=== PATIENT | female | born 1950 | race Caucasian/White ===

== ENCOUNTER 2024-06-09 09:55 | Outpatient (AMB) | payer MEDICARE, SELFPAY ==
[2024-06-09 10:08] VITALS: BP 128/70; PULSE 65; O2SAT 98; BMI 27.8
--- NOTE | 2024-06-09 10:08 | MHC.OFFVIS ---
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 The patient is a 73 year woman found to have a normal pulmonary nodules and pleural-based changes. The patient states that she is healthy warm without any significant respiratory issues. She did live in a home where she was exposed to significant secondhand smoke. Otherwise she never smoked in her life. Denies any allergies. Denies any significant respiratory symptoms. She denies having shortness breath with activity. Denies any significant cough. Sometimes she finds herself taking a deep breath spontaneously. She does not use any inhalers. 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 Therefore she was referred for CT scan of the chest that was done in 03/24/2024. I did personally review the CAT scan with her. It appears that she has not nodular base changes to the pleura bilaterally. Largest 1 measuring about 6-8 mm in size. In addition to that she has pulmonary nodules that are subcentimeter in size. I do not appreciate any significant pleural thickening or pleural effusion. She denies any pleuritic discomfort. Explained to her that the PleurX changes could be due to some degree of pleural inflammatory process that she started the past. The patient also has some minimal calcifications of the coronary arteries. She was concerned about that. I did reassure her explained to her that the stable plaque. If she does develop any respiratory symptoms chest pain or dyspnea on exertion be reasonable to consider having her have a stress test. Otherwise the patient does have a dilated esophagus on the CT scan as well. Appears to be moderately dilated mid esophagus. There was also some gastric juices noted as well. On further questioning she does complains of some some dyspepsia or heartburn symptoms. We did talk about the reflux diet. Based on the dilation of the esophagus is reasonable to have her undergo a barium swallow. [facility] Medical History (Updated 06/09/24 @ 22:02 by Hany Oliver MD) Thickening of pleura GERD (gastroesophageal reflux disease) Pulmonary nodule Social History (Updated 06/09/24 @ 10:12 by DEZ Schofield) Patient Tobacco Use Status: Never used Tobacco Review of Systems Const Denies fever(s) Eyes Reports no additional complaints ENT Reports no additional complaints Card Denies chest pain Resp Denies cough, Denies pain on inspiration, Denies pain with cough and Denies wheezing GI Reports dyspepsia and Reports heartburn Musc Reports no additional complaints Skin/Breast Denies rash Neuro Reports no additional complaints Aller/Immun Denies wheezing Physical Exam Vital Signs: Last Vital Signs Pulse 65 06/09/24 10:08 BP 128/70 06/09/24 10:08 Pulse Ox 98 06/09/24 10:08 Oxygen Delivery Method Room Air 06/09/24 10:08 BMI result Body Mass Index 27.8 Const General: comfortable HEENT Head: Yes normocephalic Neck Neck: Yes supple Chest Chest palpation & inspection: normal inspection of the chest Resp Effort & Inspection: normal respiratory effort Auscultation: clear to auscultation bilaterally Cardio Heart sounds: S1 normal heart sound present and S2 normal heart sound present GI Palpation (GI): Soft to palpation Skin General skin exam: no rashes or lesions noted Extrem General: Yes no clubbing, cyanosis or edema Assessment & Plan Assessment & Plan (1) Pulmonary nodule: Code(s): R91.1 - Solitary pulmonary nodule Category: Medical (2) GERD (gastroesophageal reflux disease): Code(s): K21.9 - Gastro-esophageal reflux disease without esophagitis Category: Medical Qualifiers: Esophagitis presence: esophagitis presence not specified Qualified Code(s): K21.9 - Gastro-esophageal reflux disease without esophagitis (3) Thickening of pleura: Code(s): J92.9 - Pleural plaque without asbestos Category: Medical Plan reflux diet Barium swallow repeat CT chest 03/2025 Consider bloodwork if symptomatic Consider GI eval depending on the berium swallow F/U after CT chest Orders: Orders FL barium swallow Today K21.9 - Gastro-esophageal reflux disease without esophagitis CT chest wo IV con 03/05/25 R91.1 - Solitary pulmonary nodule Coding Level of Care Code New Pt Level 4 (31413) Diagnoses Pulmonary nodule R91.1 Gastroesophageal reflux disease, unspecified whether esophagitis present K21.9 Esophagitis presence: esophagitis presence not specified Thickening of pleura J92.9 Time Spent (min) 45
== END 2024-06-09 10:44 | disposition home or self-care (01) ==
PROVIDERS: PCP Pediatrics; Referring Provider Pediatrics; Visit Provider Hospitalist
DX: R91.1 Solitary pulmonary nodule (principal); K21.9 Gastro-esophageal reflux disease without esophagitis; J92.9 Pleural plaque without asbestos
CPT/HCPCS: 99204

== ENCOUNTER → 2024-06-09 09:55 | Outpatient (BNVA) | payer MEDICARE, SELFPAY | PROVIDERS: PCP Pediatrics; Referring Provider Pediatrics; Visit Provider Hospitalist | DX: R91.1 Solitary pulmonary nodule (principal); K21.9 Gastro-esophageal reflux disease without esophagitis; J92.9 Pleural plaque without asbestos | CPT/HCPCS: 99202 ==

== ENCOUNTER 2024-06-22 08:34 | Outpatient (REF) | payer MEDICARE, SELFPAY ==
--- NOTE | ~2024-06-22 | FL_ITS ---
EXAMINATION: XR FLUOROSCOPY UPPER GI WITH AIR CLINICAL INFORMATION: Dilated esophagus on CT. COMPARISON: None TECHNIQUE: Fluoroscopic air contrast upper GI examination was performed utilizing standard techniques with thin and thick barium and effervescent granules. Numerous spot images were obtained. FINDINGS: Lateral cine images of the oropharynx and hypopharynx demonstrate normal swallow mechanism with normal epiglottic inversion and soft palate elevation. There is trace laryngeal penetration with thick barium. No tracheal penetration, glottic or subglottic aspiration identified. No nasopharyngeal reflux present. Hypopharyngeal structures appear normal without evidence of mass or diverticulum. There is moderate cricopharyngeal achalasia present. Dual and single contrast images of the esophagus demonstrate a mildly patulous esophagus with normal contour. No evidence of stricture, mass, or ulcerations identified. Esophageal peristalsis was moderately disorganized. A small type I hiatal hernia is present. Significant gastroesophageal reflux is seen up to the thoracic inlet. Dual contrast and single contrast images of the stomach demonstrated a normal contour. There are multiple foci of contrast pooling in the body and fundus the stomach that may represent small superficial aphthous ulcers. No masses are seen. Contrast freely passed into the gastric antrum and duodenal bulb without delay. Single and air-contrast images of the duodenal bulb demonstrate no abnormality. The duodenal sweep has a normal appearance, course, and mucosal fold appearance. The imaged proximal jejunum has a normal fold pattern and caliber. Contrast is noted to opacify the right colon less than 10 minutes. FLUOROSCOPY TIME: 4 minutes 44 seconds Number of Spot Images: 12 Number of Cine: 14 DOSE AREA PRODUCT: [id number] uGy-m2 (microgray-meter squared) FL/FL barium swallow with air IMPRESSION: 1. Trace laryngeal penetration with thick barium 2. Moderate cricopharyngeal achalasia. 3. Mildly patulous esophagus with moderately disorganized peristalsis consistent with esophagitis motility. 4. Small type I hiatal hernia with severe gastroesophageal reflux. 5. Multiple foci of contrast pooling in the body and fundus the stomach that likely represent small superficial aphthous ulcers. Recommend correlation with EGD. 6. Rapid transit of the barium column, with the right colon opacified in less than 10 minutes. Etiology is unclear. This procedure was performed by Madhu Eagle PA-C, and supervised by Dr. Avilez Electronically signed by: El Avilez MD 06/22/2024 04:36 PM EDT RP
== END 2024-06-22 08:35 | disposition home or self-care (01) ==
LOC: HO.XRAY 08:34
PROVIDERS: PCP Pediatrics; Referring Provider Pediatrics; Visit Provider Hospitalist
DX: K21.9 Gastro-esophageal reflux disease without esophagitis (principal)
CPT/HCPCS: 74221

== ENCOUNTER → 2024-06-22 09:00 | Outpatient (BNV) | payer MEDICARE, SELFPAY | PROVIDERS: PCP Pediatrics; Referring Provider Pediatrics; Visit Provider Radiology Diagnostic Radiology | DX: K22.89 Other specified disease of esophagus (principal) | CPT/HCPCS: 74246 ==

== ENCOUNTER 2025-03-24 10:03 | Outpatient (AMB) | payer MEDICARE, SELFPAY ==
[2025-03-24 10:10] VITALS: BP 110/62; PULSE 62; O2SAT 100; BMI 28.2
--- NOTE | 2025-03-24 10:10 | MHC.OFFVIS ---
Vital Signs 03/24/25 10:10 Height 5 ft 2 in Weight 154 lb 5.177 oz BMI 28.2 BP 110/62 Blood Pressure Location Lt brachial Position Sitting Pulse 62 Pulse Source Pulse Oximeter Pulse Oximetry (%) 100 Oxygen Delivery Method Room Air Intake Visit Reasons: Pleural Abnormalities Audio Experience Expert Required: No Accompanied by: Self / Same As Patient Allergies lisinopril Adverse Reaction (Severe, Verified 03/24/25 10:13) Cough HPI Comments Details: The patient is a 74 year woman found to have a normal pulmonary nodules and pleural-based changes. The patient states that she is healthy warm without any significant respiratory issues. She did live in a home where she was exposed to significant secondhand smoke. Otherwise she never smoked in her life. Denies any allergies. Denies any significant respiratory symptoms. She denies having shortness breath with activity. Denies any significant cough. Sometimes she finds herself taking a deep breath spontaneously. She does not use any inhalers. 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 Therefore she was referred for CT scan of the chest that was done in 03/24/2024. I did personally review the CAT scan with her. It appears that she has not nodular base changes to the pleura bilaterally. Largest 1 measuring about 6-8 mm in size. In addition to that she has pulmonary nodules that are subcentimeter in size. I do not appreciate any significant pleural thickening or pleural effusion. She denies any pleuritic discomfort. The patient also has some minimal calcifications of the coronary arteries. She was concerned about that. I did reassure her explained to her that the stable plaque. If she does develop any respiratory symptoms chest pain or dyspnea on exertion be reasonable to consider having her have a stress test. Otherwise the patient does have a dilated esophagus on the CT scan as well. Appears to be moderately dilated mid esophagus. There was also some gastric juices noted as well. On further questioning she does complains of some some dyspepsia or heartburn symptoms. We did talk about the reflux diet. Based on the dilation of the esophagus is reasonable to have her undergo a barium swallow. 03/24/2025 the patient is here for pulmonary follow-up visit. Overall she is doing very well. Denies any respiratory or GI discomfort. Sometimes she gets some heartburn but just intermittently. Overall the patient has been doing very well. The patient did have a repeat CT scan of the chest sometime in February 2025 which was personally by me. Pulmonary nodules are stable. Will plan to repeat the CAT scan in a year's time to make sure that there is no change and then after that no additional serial CAT scans are warranted. She did have some calcifications of the coronary arteries and recently she was started on Lipitor which is reassuring. In addition to that it was mentioned on the upper abdominal cuts that she has some slight reaction to the mesentery with some lymphadenopathy. But minimal changes. If she does develop any symptoms she should follow-up with her primary care. In the meantime will plan to reassess with a repeat CAT scan next year. Otherwise the patient is doing well and will follow-up in a year's time after her CAT scan. [facility] Medical History (Updated 03/24/25 @ 10:23 by Hany Oliver MD) Chest pain Abnormal barium swallow Thickening of pleura GERD (gastroesophageal reflux disease) Pulmonary nodule Social History Patient Tobacco Use Status: Never used Tobacco Review of Systems Const Denies fever(s) Eyes Reports no additional complaints ENT Reports no additional complaints Card Denies chest pain Resp Denies cough, Denies pain on inspiration, Denies pain with cough and Denies wheezing GI Reports dyspepsia and Reports heartburn Musc Reports no additional complaints Skin/Breast Denies rash Neuro Reports no additional complaints Aller/Immun Denies wheezing Physical Exam Vital Signs: Last Vital Signs Pulse 62 03/24/25 10:10 BP 110/62 03/24/25 10:10 Pulse Ox 100 03/24/25 10:10 Oxygen Delivery Method Room Air 03/24/25 10:10 BMI result Body Mass Index 28.2 Const General: comfortable HEENT Head: Yes normocephalic Neck Neck: Yes supple Chest Chest palpation & inspection: normal inspection of the chest Resp Effort & Inspection: normal respiratory effort Auscultation: clear to auscultation bilaterally Cardio Heart sounds: S1 normal heart sound present and S2 normal heart sound present GI Palpation (GI): Soft to palpation Skin General skin exam: no rashes or lesions noted Extrem General: Yes no clubbing, cyanosis or edema Assessment & Plan Assessment & Plan (1) Pulmonary nodule: Code(s): R91.1 - Solitary pulmonary nodule Category: Medical (2) GERD (gastroesophageal reflux disease): Code(s): K21.9 - Gastro-esophageal reflux disease without esophagitis Category: Medical Qualifiers: Esophagitis presence: esophagitis presence not specified Qualified Code(s): K21.9 - Gastro-esophageal reflux disease without esophagitis (3) Thickening of pleura: Code(s): J92.9 - Pleural plaque without asbestos Category: Medical Plan reflux diet Barium swallow repeat CT chest 03/2026 Consider bloodwork if symptomatic F/U after CT chest Orders: Orders CT chest wo IV con 1 Year R91.1 - Solitary pulmonary nodule Coding Level of Care Code Est Pt Level 4 (01867) Diagnoses Pulmonary nodule R91.1 Gastroesophageal reflux disease, unspecified whether esophagitis present K21.9 Esophagitis presence: esophagitis presence not specified Thickening of pleura J92.9 Time Spent (min) 17
--- OUTSIDE RECORDS SUMMARY | 2025-03-24 10:20 | XMS_ITS ---
Author Name [facility] Organization Unknown History of Medication Use Medication Directions Dispensed Refills Start Date End Date Stat us traMADol (ULTRAM) 50 MG tablet Take 1 tablet (50 mg total) by mouth 4 times daily (every 6 hours) as needed for severe pain. 03/23/2023 active Problems Problem Status Onset Date Problem Type Date of Resoluti on Source Acquired hallux valgus of right foot active EncounterDiagnosisAct [facility] Pain in right ankle and joints of right foot active EncounterDiagnosisAct [facility] Acquired hammertoe of right foot active EncounterDiagnosisAct [facility] Encounters Encounter Type Encounter Reason Primary Diagnosis Location Date Ambulatory [facility] 01/03/2025 Ambulatory Pain in right ankle and joints of right foot Pain in right ankle and joints of right foot [facility] 01/03/2025 Ambulatory Ganglion, right hand Ganglion, right hand [facility] 05/13/2023 Ambulatory Ganglion, right hand [facility] 04/01/2023 Care Team Organization Name Specialty Phone Email Start Date End Da te [facility] 04/01/2023 025 [facility] 03/19/2023 023
== END 2025-03-24 10:40 | disposition home or self-care (01) ==
LOC: HO.HPS 10:04
PROVIDERS: PCP Pediatrics; Visit Provider Hospitalist
DX: R91.1 Solitary pulmonary nodule (principal); K21.9 Gastro-esophageal reflux disease without esophagitis; J92.9 Pleural plaque without asbestos
CPT/HCPCS: 99214

== ENCOUNTER → 2025-03-24 10:03 | Outpatient (BNVA) | payer MEDICARE, SELFPAY | PROVIDERS: PCP Pediatrics; Visit Provider Hospitalist | DX: R91.1 Solitary pulmonary nodule (principal); K21.9 Gastro-esophageal reflux disease without esophagitis; J92.9 Pleural plaque without asbestos | CPT/HCPCS: 99212 ==